=== PATIENT | male | born 1955 | race Caucasian/White ===

== ENCOUNTER → 2017-08-26 | Outpatient (CLI) | payer BC, OTHER | LOC: M LAB 08:56 | PROVIDERS: ATTEND Urology | DX: R97.20 Elevated prostate specific antigen [PSA] (principal) ==

== ENCOUNTER → 2018-08-26 | Outpatient (CLI) | payer BC, OTHER ==
[2018-08-26 10:30] LABS: PROSTATIC SPECIFIC AG MONITOR 3.47 NG/ML (< 4.0)
== END ==
LOC: M LAB 09:14
DX: R97.20 Elevated prostate specific antigen [PSA] (principal)
CPT/HCPCS: 84153

== ENCOUNTER → 2019-09-07 | Outpatient (CLI) | payer BC, OTHER | LOC: M LAB 08:16 | PROVIDERS: ATTEND Physician Assistant | DX: N40.1 Benign prostatic hyperplasia with lower urinary tract symptoms (principal) ==

== ENCOUNTER → 2020-11-27 | Outpatient (CLI) | payer BC, OTHER ==
[~2020-11-27] MED LIST: AMBI10TA PO; CRES5TAB PO; ECOT81TA5 PO
== END ==
LOC: M LAB 15:19
PROVIDERS: ATTEND Internal Medicine Gastroenterology
DX: D50.9 Iron deficiency anemia, unspecified (principal)

== ENCOUNTER → 2020-11-27 | Outpatient (CLI) | payer BC, OTHER | LOC: M LAB 15:22 | PROVIDERS: ATTEND Physician Assistant | DX: R97.20 Elevated prostate specific antigen [PSA] (principal) ==

== ENCOUNTER → 2021-01-13 | Outpatient (CLI) | payer BC, OTHER ==
[~2021-01-13] MED LIST changes: +FERR325T18 PO; +LISI20TA20 PO
== END ==
LOC: M LABSMTC 08:16
PROVIDERS: ATTEND Anesthesiology
DX: Z01.812 Encounter for preprocedural laboratory examination (principal); Z20.822 Contact with and (suspected) exposure to COVID-19

== ENCOUNTER 2021-01-18 11:24 | Day surgery (SDC) | payer BC, OTHER ==
[~2021-01-18] VITALS: Ht 167.6 cm; Wt 74.4 kg
[~2021-01-18 11:24] MED LIST changes: +NS 1,000 ML IV ONE
[2021-01-18] MEDS ORDERED: fentaNYL 100 MCG/2 ML INJECTION (J3010) As Ordered ONE (12:36)
[2021-01-18] MEDS ORDERED: LIDOCAINE 2% 100MG/5ML SDV (FOR ANES.) As Ordered ONE (12:42)
[2021-01-18] MEDS ORDERED: propofoL 200 MG/20 ML VIAL As Ordered ONE ×2 (12:42→12:43)
--- NOTE | 2021-01-18 12:55 | ROOR ---
Patient Name: Mekhi Abdalla Procedure Date: 01/18/2021 12:44 PM Date of : 1955 Age: 65 Room: [facility] Gender: Male Note Status: Finalized Procedure: Upper GI endoscopy Indications: Iron deficiency anemia Providers: Andrea CONNOR MD Referring MD: ASHLEY TAY Requesting Provider: Medicines: Monitored Anesthesia Care Complications: No immediate complications. Procedure: Pre-Anesthesia Assessment: - The heart rate, respiratory rate, oxygen saturations, blood pressure, adequacy of pulmonary ventilation, and response to care were monitored throughout the procedure. The Endoscope was introduced through the mouth, and advanced to the third part of duodenum. The upper GI endoscopy was accomplished without difficulty. The patient tolerated the procedure well. Findings: The esophagus was normal. The stomach was normal. The examined duodenum was normal. Biopsies for histology were taken with a cold forceps in the second portion of the duodenum and in the third portion of the duodenum for evaluation of celiac disease. Impression: - Normal esophagus. - Normal stomach. - Normal examined duodenum. - Biopsies were taken with a cold forceps for evaluation of celiac disease. Recommendation: - Observe patient's clinical course. Procedure Code(s): --- Professional --- 69392, Esophagogastroduodenoscopy, flexible, transoral; with biopsy, single or multiple Diagnosis Code(s): --- Professional --- D50.9, Iron deficiency anemia, unspecified CPT copyright 2019 [employer]. All rights reserved. The codes documented in this report are preliminary and upon gantry rigger review may be revised to meet current compliance requirements. Andrea Connor MD Andrea CONNOR MD 01/18/2021 12:54:57 PM Electronically signed by Andrea CONNOR MD Number of Addenda: 0 Note Initiated On: 01/18/2021 12:44 PM Estimated Blood Loss: Estimated blood loss: none.
--- NOTE | 2021-01-18 13:11 | ROOR ---
Patient Name: Mekhi Abdalla Procedure Date: 01/18/2021 12:45 PM Date of : 1955 Age: 65 Room: [facility] Gender: Male Note Status: Finalized Procedure: Colonoscopy Indications: Iron deficiency anemia Providers: Andrea CONNOR MD Referring MD: ASHLEY TAY Requesting Provider: Medicines: Monitored Anesthesia Care Complications: No immediate complications. Procedure: Pre-Anesthesia Assessment: - The heart rate, respiratory rate, oxygen saturations, blood pressure, adequacy of pulmonary ventilation, and response to care were monitored throughout the procedure. The Colonoscope was introduced through the anus and advanced to 10 cm into the ileum. The colonoscopy was performed without difficulty. The patient tolerated the procedure well. The quality of the bowel preparation was good. Findings: Skin tags were found on perianal exam. Biopsy with a cold forceps at the anus was performed for histology. The colon (entire examined portion) appeared normal. The terminal ileum appeared normal. Impression: - Perianal skin tag found on perianal exam. Biopsied. - Small internal hemiorrhoids. - The entire examined colon is normal. - The examined portion of the ileum was normal. Recommendation: - Await pathology results. - Telephone endoscopist for pathology results in 2 weeks. - Continue present medications. Procedure Code(s): --- Professional --- 24378, Colonoscopy, flexible; with biopsy, single or multiple Diagnosis Code(s): --- Professional --- D50.9, Iron deficiency anemia, unspecified K64.4, Residual hemorrhoidal skin tags CPT copyright 2019 [employer]. All rights reserved. The codes documented in this report are preliminary and upon cargo bracer review may be revised to meet current compliance requirements. Andrea Connor MD Andrea CONNOR MD 01/18/2021 1:10:39 PM Electronically signed by Andrea CONNOR MD Number of Addenda: 0 Note Initiated On: 01/18/2021 12:45 PM Estimated Blood Loss: Estimated blood loss: none.
[2021-01-18 13:35] VITALS: BP 146/70
== END 2021-01-18 13:47 | disposition home or self-care (01) ==
LOC: M OPP 11:24
PROVIDERS: ATTEND Internal Medicine Gastroenterology
DX: D50.9 Iron deficiency anemia, unspecified (principal); K64.8 Other hemorrhoids; I10 Essential (primary) hypertension; K21.9 Gastro-esophageal reflux disease without esophagitis; Z79.82 Long term (current) use of aspirin; Z79.899 Other long term (current) drug therapy
CPT/HCPCS: 43239; 45380; 88302; 88305; J3010

== ENCOUNTER → 2021-07-26 | Outpatient (CLI) | payer BC, OTHER ==
[~2021-07-26] MED LIST changes: -NS 1,000 ML IV ONE
== END ==
LOC: M LAB 08:17
PROVIDERS: ATTEND Urology
DX: C61 Malignant neoplasm of prostate (principal)

== ENCOUNTER → 2021-09-11 | Outpatient (CLI) | payer BC, OTHER | LOC: M WUC 08:36 | PROVIDERS: ATTEND Urology | DX: N40.1 Benign prostatic hyperplasia with lower urinary tract symptoms (principal) ==

== ENCOUNTER → 2021-09-23 | Outpatient (CLI) | payer BC, OTHER ==
[2021-09-23 11:26] LABS: BASO # 0.1 10^3/uL (0.0-0.2); BASO % 0.5 % (0.0-1.0); EOS # 0.1 10^3/uL (0.0-0.5); EOS % 1.4 % (0.0-3.0); HEMATOCRIT 40.6 % (42.0-52.0); HEMOGLOBIN 12.9 g/dl (13.5-17.5); LYMPH # 2.4 10^3/uL (1.5-5.0); LYMPH % 25.3 % (24.0-44.0); MEAN CORPUSCULAR HEMOGLOBIN 29.1 pg (27.0-33.0); MEAN CORPUSCULAR HGB CONC 31.8 g/dl (32.0-36.5); MEAN CORPUSCULAR VOLUME 91.4 fl (80.0-96.0); MONO # 0.6 10^3/uL (0.0-0.8); MONO % 6.3 % (2.0-8.0); NEUTROPHILS # 6.3 10^3/uL (1.5-8.5); NEUTROPHILS % 65.8 % (36.0-66.0); PLATELET COUNT, AUTOMATED 892 10^3/uL (150-450); RED BLOOD COUNT 4.44 10^6/uL (4.30-6.10); WHITE BLOOD COUNT 9.6 10^3/uL (4.0-10.0)
== END ==
LOC: M WUC 08:47
PROVIDERS: ATTEND Internal Medicine Hematology & Oncology
DX: D47.3 Essential (hemorrhagic) thrombocythemia (principal); D68.51 Activated protein C resistance

== ENCOUNTER → 2021-10-03 | Outpatient (CLI) | payer BC, OTHER ==
[2021-10-03 10:56] LABS: BASO % 0.3 % (0.0-1.0); EOS # 0.1 10^3/uL (0.0-0.5); EOS % 1.5 % (0.0-3.0); HEMATOCRIT 40.3 % (42.0-52.0); HEMOGLOBIN 12.9 g/dl (13.5-17.5); LYMPH % 25.3 % (24.0-44.0); MEAN CORPUSCULAR HEMOGLOBIN 29.5 pg (27.0-33.0); MEAN CORPUSCULAR VOLUME 92.2 fl (80.0-96.0); MONO # 0.4 10^3/uL (0.0-0.8); MONO % 4.8 % (2.0-8.0); NEUTROPHILS # 5.4 10^3/uL (1.5-8.5); NEUTROPHILS % 67.5 % (36.0-66.0); PLATELET COUNT, AUTOMATED 538 10^3/uL (150-450); RED BLOOD COUNT 4.37 10^6/uL (4.30-6.10); WHITE BLOOD COUNT 7.9 10^3/uL (4.0-10.0)
== END ==
LOC: M WUC 09:31
PROVIDERS: ATTEND Internal Medicine Hematology & Oncology
DX: D47.3 Essential (hemorrhagic) thrombocythemia (principal); D68.51 Activated protein C resistance

== ENCOUNTER → 2021-10-14 | Outpatient (CLI) | payer BC, OTHER ==
[~2021-10-14] MED LIST changes: -LISI20TA20 PO; +LISI20TA37 PO
[2021-10-14 12:57] LABS: BASO % 0.3 % (0.0-1.0); EOS % 0.5 % (0.0-3.0); HEMATOCRIT 40.5 % (42.0-52.0); LYMPH # 1.8 10^3/uL (1.5-5.0); LYMPH % 28.4 % (24.0-44.0); MEAN CORPUSCULAR HGB CONC 32.1 g/dl (32.0-36.5); MEAN CORPUSCULAR VOLUME 93.5 fl (80.0-96.0); MONO # 0.6 10^3/uL (0.0-0.8); MONO % 8.9 % (2.0-8.0); NEUTROPHILS % 61.6 % (36.0-66.0); PLATELET COUNT, AUTOMATED 490 10^3/uL (150-450); RED BLOOD COUNT 4.33 10^6/uL (4.30-6.10); WHITE BLOOD COUNT 6.4 10^3/uL (4.0-10.0)
== END ==
LOC: M WUC 10:53
PROVIDERS: ATTEND Internal Medicine Hematology & Oncology
DX: D47.3 Essential (hemorrhagic) thrombocythemia (principal); D68.51 Activated protein C resistance

== ENCOUNTER → 2021-11-04 | Outpatient (REF) | payer BC, OTHER ==
[2021-11-04 12:13] LABS: BASO % 0.3 % (0.0-1.0); EOS # 0.1 10^3/uL (0.0-0.5); HEMATOCRIT 41.3 % (42.0-52.0); HEMOGLOBIN 13.4 g/dl (13.5-17.5); LYMPH # 2.1 10^3/uL (1.5-5.0); LYMPH % 29.8 % (24.0-44.0); MEAN CORPUSCULAR HGB CONC 32.4 g/dl (32.0-36.5); MEAN CORPUSCULAR VOLUME 98.6 fl (80.0-96.0); MONO # 0.6 10^3/uL (0.0-0.8); MONO % 8.4 % (2.0-8.0); NEUTROPHILS # 4.3 10^3/uL (1.5-8.5); NEUTROPHILS % 60.2 % (36.0-66.0); PLATELET COUNT, AUTOMATED 444 10^3/uL (150-450); RED BLOOD COUNT 4.19 10^6/uL (4.30-6.10); WHITE BLOOD COUNT 7.1 10^3/uL (4.0-10.0)
== END ==
LOC: M WUC 11:15
PROVIDERS: ATTEND Internal Medicine Hematology & Oncology
DX: D47.3 Essential (hemorrhagic) thrombocythemia (principal); D68.51 Activated protein C resistance

== ENCOUNTER → 2022-01-03 | Outpatient (CLI) | payer MEDICARE, OTHER, BC ==
[2022-01-03 12:12] LABS: BASO % 0.2 % (0.0-1.0); EOS % 0.3 % (0.0-3.0); HEMATOCRIT 41.8 % (42.0-52.0); HEMOGLOBIN 13.6 g/dl (13.5-17.5); LYMPH # 1.7 10^3/uL (1.5-5.0); LYMPH % 26.9 % (24.0-44.0); MEAN CORPUSCULAR HEMOGLOBIN 35.6 pg (27.0-33.0); MEAN CORPUSCULAR HGB CONC 32.5 g/dl (32.0-36.5); MEAN CORPUSCULAR VOLUME 109.4 fl (80.0-96.0); MONO # 0.5 10^3/uL (0.0-0.8); MONO % 7.6 % (2.0-8.0); NEUTROPHILS # 4.2 10^3/uL (1.5-8.5); NEUTROPHILS % 64.5 % (36.0-66.0); PLATELET COUNT, AUTOMATED 330 10^3/uL (150-450); RED BLOOD COUNT 3.82 10^6/uL (4.30-6.10); WHITE BLOOD COUNT 6.5 10^3/uL (4.0-10.0)
[2022-01-03 12:33] LABS: ALT/SGPT 35 U/L (12-78); BILIRUBIN,TOTAL 0.5 MG/DL (0.2-1.0); BLOOD UREA NITROGEN 18 MG/DL (7-18); CARBON DIOXIDE LEVEL 29 MEQ/L (21-32); CHLORIDE LEVEL 102 MEQ/L (98-107); CREATININE FOR GFR 1.23 MG/DL (0.70-1.30); GLOMERULAR FILTRATION RATE > 60.0 (>49); GLUCOSE, FASTING 87 MG/DL (70-100); POTASSIUM SERUM 4.4 MEQ/L (3.5-5.1); SODIUM LEVEL 138 MEQ/L (136-145); TOTAL PROTEIN 7.4 GM/DL (6.4-8.2)
== END ==
LOC: M WUC 09:42
PROVIDERS: ATTEND Internal Medicine Hematology & Oncology
DX: D68.51 Activated protein C resistance (principal); D75.81 Myelofibrosis

== ENCOUNTER → 2022-01-31 | Outpatient (CLI) | payer MEDICARE, OTHER, BC ==
[2022-01-31 12:35] LABS: BASO % 0.2 % (0.0-1.0); EOS % 0.2 % (0.0-3.0); HEMATOCRIT 40.2 % (42.0-52.0); HEMOGLOBIN 13.4 g/dl (13.5-17.5); LYMPH # 1.7 10^3/uL (1.5-5.0); LYMPH % 28.7 % (24.0-44.0); MEAN CORPUSCULAR HEMOGLOBIN 37.4 pg (27.0-33.0); MEAN CORPUSCULAR HGB CONC 33.3 g/dl (32.0-36.5); MEAN CORPUSCULAR VOLUME 112.3 fl (80.0-96.0); MONO # 0.4 10^3/uL (0.0-0.8); MONO % 6.6 % (2.0-8.0); NEUTROPHILS # 3.8 10^3/uL (1.5-8.5); NEUTROPHILS % 63.8 % (36.0-66.0); PLATELET COUNT, AUTOMATED 283 10^3/uL (150-450); RED BLOOD COUNT 3.58 10^6/uL (4.30-6.10)
[2022-01-31 13:01] LABS: ALT/SGPT 26 U/L (12-78); BILIRUBIN,TOTAL 0.6 MG/DL (0.2-1.0); BLOOD UREA NITROGEN 22 MG/DL (7-18); CALCIUM LEVEL 9.1 MG/DL (8.8-10.2); CARBON DIOXIDE LEVEL 34 MEQ/L (21-32); CHLORIDE LEVEL 102 MEQ/L (98-107); CREATININE FOR GFR 1.23 MG/DL (0.70-1.30); GLOMERULAR FILTRATION RATE > 60.0 (>49); GLUCOSE, FASTING 108 MG/DL (70-100); POTASSIUM SERUM 4.4 MEQ/L (3.5-5.1); SODIUM LEVEL 139 MEQ/L (136-145); TOTAL PROTEIN 7.4 GM/DL (6.4-8.2)
== END ==
LOC: M WUC 09:50
PROVIDERS: ATTEND Internal Medicine Hematology & Oncology
DX: D68.51 Activated protein C resistance (principal); D75.81 Myelofibrosis

== ENCOUNTER → 2022-03-24 | Outpatient (CLI) | payer MEDICARE, OTHER, BC | LOC: M WUC 10:01 | PROVIDERS: ATTEND Urology | DX: C61 Malignant neoplasm of prostate (principal) ==

== ENCOUNTER → 2022-03-24 | Outpatient (CLI) | payer MEDICARE, OTHER, BC ==
[2022-03-24 13:40] LABS: BASO % 0.2 % (0.0-1.0); EOS % 0.2 % (0.0-3.0); HEMATOCRIT 41.1 % (42.0-52.0); HEMOGLOBIN 13.5 g/dl (13.5-17.5); LYMPH # 1.5 10^3/uL (1.5-5.0); LYMPH % 28.5 % (24.0-44.0); MEAN CORPUSCULAR HGB CONC 32.8 g/dl (32.0-36.5); MONO # 0.5 10^3/uL (0.0-0.8); MONO % 9.1 % (2.0-8.0); NEUTROPHILS # 3.3 10^3/uL (1.5-8.5); NEUTROPHILS % 61.6 % (36.0-66.0); PLATELET COUNT, AUTOMATED 300 10^3/uL (150-450); RED BLOOD COUNT 3.55 10^6/uL (4.30-6.10); WHITE BLOOD COUNT 5.3 10^3/uL (4.0-10.0)
[2022-03-24 13:45] LABS: MEAN CORPUSCULAR VOLUME 115.8 fl (80.0-96.0)
[2022-03-24 14:04] LABS: ALBUMIN 3.9 GM/DL (3.2-5.2); ALT/SGPT 26 U/L (12-78); BILIRUBIN,TOTAL 0.5 MG/DL (0.2-1.0); BLOOD UREA NITROGEN 23 MG/DL (7-18); CALCIUM LEVEL 9.3 MG/DL (8.8-10.2); CARBON DIOXIDE LEVEL 31 MEQ/L (21-32); CHLORIDE LEVEL 104 MEQ/L (98-107); CREATININE FOR GFR 1.14 MG/DL (0.70-1.30); GLOMERULAR FILTRATION RATE > 60.0 (>49); GLUCOSE, FASTING 111 MG/DL (70-100); POTASSIUM SERUM 5.1 MEQ/L (3.5-5.1); SODIUM LEVEL 139 MEQ/L (136-145); TOTAL PROTEIN 7.4 GM/DL (6.4-8.2)
[2022-03-24 14:22] LABS: PLATELET ESTIMATE NORMAL (NORMAL)
== END ==
LOC: M WUC 10:04
PROVIDERS: ATTEND Internal Medicine Hematology & Oncology
DX: D68.51 Activated protein C resistance (principal); D75.81 Myelofibrosis

== ENCOUNTER → 2022-04-21 | Outpatient (CLI) | payer MEDICARE, OTHER, BC ==
[2022-04-21 12:54] LABS: BASO % 0.2 % (0.0-1.0); EOS % 0.2 % (0.0-3.0); HEMATOCRIT 40.4 % (42.0-52.0); HEMOGLOBIN 13.6 g/dl (13.5-17.5); LYMPH # 1.6 10^3/uL (1.5-5.0); LYMPH % 28.9 % (24.0-44.0); MEAN CORPUSCULAR HEMOGLOBIN 40.1 pg (27.0-33.0); MEAN CORPUSCULAR HGB CONC 33.7 g/dl (32.0-36.5); MONO # 0.4 10^3/uL (0.0-0.8); MONO % 7.5 % (2.0-8.0); NEUTROPHILS # 3.4 10^3/uL (1.5-8.5); NEUTROPHILS % 62.8 % (36.0-66.0); PLATELET COUNT, AUTOMATED 286 10^3/uL (150-450); RED BLOOD COUNT 3.39 10^6/uL (4.30-6.10); WHITE BLOOD COUNT 5.4 10^3/uL (4.0-10.0)
[2022-04-21 12:56] LABS: MEAN CORPUSCULAR VOLUME 119.2 fl (80.0-96.0)
[2022-04-21 13:22] LABS: ALBUMIN 3.9 GM/DL (3.2-5.2); BILIRUBIN,TOTAL 0.5 MG/DL (0.2-1.0); CALCIUM LEVEL 8.9 MG/DL (8.8-10.2); CREATININE FOR GFR 1.4 MG/DL (0.70-1.30); GLOMERULAR FILTRATION RATE 54.1 (>49); POTASSIUM SERUM 4.8 MEQ/L (3.5-5.1); TOTAL PROTEIN 6.9 GM/DL (6.4-8.2)
[2022-04-21 13:29] LABS: OVALOCYTES 3+; TEAR DROP CELLS 1+
[2022-04-21 13:30] LABS: PLATELET ESTIMATE NORMAL (NORMAL)
== END ==
LOC: M WUC 09:26
PROVIDERS: ATTEND Internal Medicine Hematology & Oncology
DX: D68.51 Activated protein C resistance (principal); D75.81 Myelofibrosis

== ENCOUNTER → 2022-09-30 | Outpatient (CLI) | payer MEDICARE, OTHER, BC | LOC: M WUC 09:05 | PROVIDERS: ATTEND Urology | DX: C61 Malignant neoplasm of prostate (principal) ==

== ENCOUNTER → 2022-11-07 | Outpatient (CLI) | payer MEDICARE, OTHER, BC ==
[2022-11-07 13:54] LABS: BASO % 0.3 % (0.0-1.0); EOS % 0.7 % (0.0-3.0); HEMATOCRIT 41.3 % (42.0-52.0); HEMOGLOBIN 13.8 g/dl (13.5-17.5); LYMPH # 1.5 10^3/uL (1.5-5.0); LYMPH % 25.7 % (24.0-44.0); MEAN CORPUSCULAR HEMOGLOBIN 40.1 pg (27.0-33.0); MEAN CORPUSCULAR HGB CONC 33.4 g/dl (32.0-36.5); MONO # 0.6 10^3/uL (0.0-0.8); MONO % 10.4 % (2.0-8.0); NEUTROPHILS # 3.7 10^3/uL (1.5-8.5); NEUTROPHILS % 62.4 % (36.0-66.0); PLATELET COUNT, AUTOMATED 375 10^3/uL (150-450); RED BLOOD COUNT 3.44 10^6/uL (4.30-6.10)
[2022-11-07 14:08] LABS: ALKALINE PHOSPHATASE 62 U/L (46-116); ALT/SGPT 33 U/L (7.0-40); AST/SGOT 29 U/L (<34); BILIRUBIN,TOTAL 0.6 MG/DL (0.3-1.2); BLOOD UREA NITROGEN 20 MG/DL (9-23); CALCIUM LEVEL 8.9 MG/DL (8.3-10.6); CARBON DIOXIDE LEVEL 27 MMOL/L (20-31); CHLORIDE LEVEL 100 MMOL/L (98-107); CHOLESTEROL LEVEL 140 MG/DL (<200); CHOLESTEROL RISK RATIO 3.32 (<5); CREATININE FOR GFR 1.06 MG/DL (0.70-1.30); GLOMERULAR FILTRATION RATE > 60.0 (>49); GLUCOSE, FASTING 95 MG/DL (74-106); HDL CHOLESTEROL 42.1 MG/DL (>40); LDL CHOLESTEROL 71.9 MG/DL (<100); NON-HDL-C 98 MG/DL; POTASSIUM SERUM 5.3 MMOL/L (3.5-5.1); SODIUM LEVEL 137 MMOL/L (136-145); TRIGLYCERIDES LEVEL 130 MG/DL (<150)
[2022-11-07 14:09] LABS: MEAN CORPUSCULAR VOLUME 120.1 fl (80.0-96.0)
[2022-11-07 15:26] LABS: PLATELET ESTIMATE NORMAL (NORMAL)
== END ==
LOC: M PLALAB 09:31
PROVIDERS: ATTEND Physician Assistant
DX: I10 Essential (primary) hypertension (principal); E78.5 Hyperlipidemia, unspecified

== ENCOUNTER → 2023-02-09 | Outpatient (CLI) | payer MEDICARE, OTHER, BC ==
[2023-02-09 12:31] LABS: BASO % 0.2 % (0.0-1.0); EOS % 0.3 % (0.0-3.0); HEMATOCRIT 41.2 % (42.0-52.0); HEMOGLOBIN 13.7 g/dl (13.5-17.5); LYMPH # 1.9 10^3/uL (1.5-5.0); LYMPH % 32.4 % (24.0-44.0); MEAN CORPUSCULAR HEMOGLOBIN 39.7 pg (27.0-33.0); MEAN CORPUSCULAR HGB CONC 33.3 g/dl (32.0-36.5); MONO # 0.5 10^3/uL (0.0-0.8); MONO % 9.2 % (2.0-8.0); NEUTROPHILS # 3.3 10^3/uL (1.5-8.5); NEUTROPHILS % 57.6 % (36.0-66.0); PLATELET COUNT, AUTOMATED 362 10^3/uL (150-450); RED BLOOD COUNT 3.45 10^6/uL (4.30-6.10); WHITE BLOOD COUNT 5.8 10^3/uL (4.0-10.0)
[2023-02-09 12:36] LABS: MEAN CORPUSCULAR VOLUME 119.4 fl (80.0-96.0)
[2023-02-09 12:58] LABS: ALBUMIN 3.8 G/DL (3.2-5.2); ALKALINE PHOSPHATASE 60 U/L (46-116); ALT/SGPT 20 U/L (7.0-40); AST/SGOT 22 U/L (<34); BILIRUBIN,TOTAL 0.6 MG/DL (0.3-1.2); BLOOD UREA NITROGEN 22 MG/DL (9-23); CALCIUM LEVEL 8.8 MG/DL (8.3-10.6); CARBON DIOXIDE LEVEL 31 MMOL/L (20-31); CHLORIDE LEVEL 100 MMOL/L (98-107); CHOLESTEROL LEVEL 129 MG/DL (<200); CHOLESTEROL RISK RATIO 2.89 (<5); CREATININE FOR GFR 1.06 MG/DL (0.70-1.30); GLOMERULAR FILTRATION RATE > 60.0 (>49); GLUCOSE, FASTING 85 MG/DL (74-106); HDL CHOLESTEROL 44.6 MG/DL (>40); LDL CHOLESTEROL 63.8 MG/DL (<100); NON-HDL-C 84.4 MG/DL; POTASSIUM SERUM 4.2 MMOL/L (3.5-5.1); SODIUM LEVEL 138 MMOL/L (136-145); TOTAL PROTEIN 6.7 G/DL (5.7-8.2); TRIGLYCERIDES LEVEL 103 MG/DL (<150)
== END ==
LOC: M WUC 08:21
PROVIDERS: ATTEND Physician Assistant
DX: I10 Essential (primary) hypertension (principal); E78.5 Hyperlipidemia, unspecified; D75.81 Myelofibrosis

== ENCOUNTER → 2023-03-31 | Outpatient (CLI) | payer MEDICARE, OTHER, BC ==
[2023-04-01 23:07] LABS: PSA % FREE 27.1 % (.); PSA FREE 1.49 ng/mL; PSA TOTAL 5.5 ng/mL (0.0-4.0)
== END ==
LOC: M WUC 09:22
PROVIDERS: ATTEND Urology
DX: C61 Malignant neoplasm of prostate (principal); R97.20 Elevated prostate specific antigen [PSA]

== ENCOUNTER → 2023-05-13 | Outpatient (CLI) | payer MEDICARE, OTHER, BC ==
[2023-05-13 11:45] LABS: ALBUMIN 3.9 G/DL (3.2-5.2); ALKALINE PHOSPHATASE 50 U/L (46-116); ALT/SGPT 23 U/L (7.0-40); AST/SGOT 23 U/L (<34); BILIRUBIN,TOTAL 0.8 MG/DL (0.3-1.2); BLOOD UREA NITROGEN 19 MG/DL (9-23); CALCIUM LEVEL 8.3 MG/DL (8.3-10.6); CARBON DIOXIDE LEVEL 31 MMOL/L (20-31); CHLORIDE LEVEL 102 MMOL/L (98-107); CHOLESTEROL LEVEL 131 MG/DL (<200); CHOLESTEROL RISK RATIO 3.36 (<5); CREATININE FOR GFR 1.09 MG/DL (0.70-1.30); GLOMERULAR FILTRATION RATE > 60.0 (>49); GLUCOSE, FASTING 89 MG/DL (74-106); HDL CHOLESTEROL 38.9 MG/DL (>40); LDL CHOLESTEROL 65.7 MG/DL (<100); NON-HDL-C 92.1 MG/DL; POTASSIUM SERUM 4.8 MMOL/L (3.5-5.1); SODIUM LEVEL 137 MMOL/L (136-145); TOTAL PROTEIN 6.4 G/DL (5.7-8.2); TRIGLYCERIDES LEVEL 132 MG/DL (<150)
== END ==
LOC: M WUC 08:19
PROVIDERS: ATTEND Physician Assistant
DX: I10 Essential (primary) hypertension (principal); E78.5 Hyperlipidemia, unspecified

== ENCOUNTER → 2023-08-27 | Outpatient (REF) | payer MEDICARE, OTHER, BC ==
[2023-08-27 12:09] LABS: EOS % 0.3 % (0.0-3.0); HEMATOCRIT 40.1 % (42.0-52.0); HEMOGLOBIN 13.3 g/dl (13.5-17.5); LYMPH # 1.5 10^3/uL (1.5-5.0); LYMPH % 23.6 % (24.0-44.0); MEAN CORPUSCULAR HEMOGLOBIN 40.4 pg (27.0-33.0); MEAN CORPUSCULAR HGB CONC 33.2 g/dl (32.0-36.5); MONO # 0.5 10^3/uL (0.0-0.8); MONO % 7.6 % (2.0-8.0); NEUTROPHILS # 4.4 10^3/uL (1.5-8.5); PLATELET COUNT, AUTOMATED 298 10^3/uL (150-450); RED BLOOD COUNT 3.29 10^6/uL (4.30-6.10); WHITE BLOOD COUNT 6.5 10^3/uL (4.0-10.0)
[2023-08-27 12:12] LABS: MEAN CORPUSCULAR VOLUME 121.9 fl (80.0-96.0)
[2023-08-27 12:34] LABS: ALKALINE PHOSPHATASE 59 U/L (46-116); ALT/SGPT 20 U/L (7.0-40); AST/SGOT 23 U/L (<34); BILIRUBIN,TOTAL 0.7 MG/DL (0.3-1.2); BLOOD UREA NITROGEN 20 MG/DL (9-23); CALCIUM LEVEL 9.1 MG/DL (8.3-10.6); CARBON DIOXIDE LEVEL 33 MMOL/L (20-31); CHLORIDE LEVEL 102 MMOL/L (98-107); CREATININE FOR GFR 1.09 MG/DL (0.70-1.30); GLOMERULAR FILTRATION RATE > 60.0 (>49); GLUCOSE, FASTING 153 MG/DL (74-106); POTASSIUM SERUM 4.9 MMOL/L (3.5-5.1); SODIUM LEVEL 140 MMOL/L (136-145); TOTAL PROTEIN 7.1 G/DL (5.7-8.2)
[2023-08-27 12:49] LABS: ANISOCYTOSIS 1+; PLATELET ESTIMATE NORMAL (NORMAL)
== END ==
LOC: M WUC 11:14
PROVIDERS: ATTEND Nurse Practitioner
DX: D68.51 Activated protein C resistance (principal); D75.81 Myelofibrosis

== ENCOUNTER → 2023-11-19 | Outpatient (CLI) | payer MEDICARE, OTHER, BC ==
[2023-11-19 10:18] LABS: HEMATOCRIT 40.2 % (42.0-52.0); HEMOGLOBIN 13.4 g/dl (13.5-17.5); MEAN CORPUSCULAR HEMOGLOBIN 39.9 pg (27.0-33.0); MEAN CORPUSCULAR HGB CONC 33.3 g/dl (32.0-36.5); PLATELET COUNT, AUTOMATED 426 10^3/uL (150-450); RED BLOOD COUNT 3.36 10^6/uL (4.30-6.10); WHITE BLOOD COUNT 6.3 10^3/uL (4.0-10.0)
[2023-11-19 10:43] LABS: ALBUMIN 3.9 G/DL (3.2-5.2); ALKALINE PHOSPHATASE 58 U/L (46-116); ALT/SGPT 20 U/L (7.0-40); AST/SGOT 21 U/L (<34); BILIRUBIN,TOTAL 0.6 MG/DL (0.3-1.2); BLOOD UREA NITROGEN 18 MG/DL (9-23); CALCIUM LEVEL 8.9 MG/DL (8.3-10.6); CARBON DIOXIDE LEVEL 32 MMOL/L (20-31); CHLORIDE LEVEL 102 MMOL/L (98-107); CHOLESTEROL LEVEL 137 MG/DL (<200); CHOLESTEROL RISK RATIO 3.41 (<5); CREATININE FOR GFR 1.09 MG/DL (0.70-1.30); GLOMERULAR FILTRATION RATE > 60.0 (>49); GLUCOSE, FASTING 96 MG/DL (74-106); HDL CHOLESTEROL 40.1 MG/DL (>40); LDL CHOLESTEROL 66.1 MG/DL (<100); NON-HDL-C 96.9 MG/DL; POTASSIUM SERUM 4.7 MMOL/L (3.5-5.1); SODIUM LEVEL 137 MMOL/L (136-145); TOTAL PROTEIN 6.7 G/DL (5.7-8.2); TRIGLYCERIDES LEVEL 154 MG/DL (<150)
[2023-11-19 12:13] LABS: MEAN CORPUSCULAR VOLUME 119.6 fl (80.0-96.0)
== END ==
LOC: M WUC 08:21
PROVIDERS: ATTEND Physician Assistant
DX: I10 Essential (primary) hypertension (principal); E78.5 Hyperlipidemia, unspecified; D68.4 Acquired coagulation factor deficiency; D75.81 Myelofibrosis

== ENCOUNTER → 2023-12-16 | Outpatient (REF) | payer MEDICARE, OTHER, BC | LOC: M LABWUC 13:29 | PROVIDERS: ATTEND Urology | DX: C61 Malignant neoplasm of prostate (principal) ==

== ENCOUNTER → 2024-06-01 | Outpatient (CLI) | payer MEDICARE, OTHER, BC ==
[2024-06-01 11:54] LABS: HEMATOCRIT 38.8 % (42.0-52.0); HEMOGLOBIN 13.1 g/dl (13.5-17.5); MEAN CORPUSCULAR HEMOGLOBIN 40.6 pg (27.0-33.0); MEAN CORPUSCULAR HGB CONC 33.8 g/dl (32.0-36.5); PLATELET COUNT, AUTOMATED 310 10^3/uL (150-450); RED BLOOD COUNT 3.23 10^6/uL (4.30-6.10)
[2024-06-01 12:00] LABS: MEAN CORPUSCULAR VOLUME 120.1 fl (80.0-96.0)
[2024-06-01 12:31] LABS: ALBUMIN 3.8 G/DL (3.2-5.2); ALKALINE PHOSPHATASE 55 U/L (46-116); ALT/SGPT 21 U/L (7.0-40); AST/SGOT 18 U/L (<34); BILIRUBIN,TOTAL 0.8 MG/DL (0.3-1.2); BLOOD UREA NITROGEN 18 MG/DL (9-23); CALCIUM LEVEL 8.7 MG/DL (8.3-10.6); CARBON DIOXIDE LEVEL 29 MMOL/L (20-31); CHLORIDE LEVEL 104 MMOL/L (98-107); CHOLESTEROL LEVEL 132 MG/DL (<200); CHOLESTEROL RISK RATIO 3.88 (<5); CREATININE FOR GFR 1.08 MG/DL (0.70-1.30); GLOMERULAR FILTRATION RATE > 60.0 (>49); GLUCOSE, FASTING 99 MG/DL (74-106); LDL CHOLESTEROL 66.2 MG/DL (<100); POTASSIUM SERUM 4.2 MMOL/L (3.5-5.1); SODIUM LEVEL 138 MMOL/L (136-145); TOTAL PROTEIN 6.5 G/DL (5.7-8.2); TRIGLYCERIDES LEVEL 159 MG/DL (<150)
[2024-06-01 12:34] LABS: THYROID STIMULATING HORMONE 2.464 uIU/ML (0.55-4.78)
[2024-06-08 07:46] LABS: WHITE BLOOD COUNT 6.2 10^3/uL (4.0-10.0)
== END ==
LOC: M WUC 08:30
PROVIDERS: ATTEND Physician Assistant
DX: E78.5 Hyperlipidemia, unspecified (principal); I10 Essential (primary) hypertension

== ENCOUNTER → 2024-06-24 | Outpatient (CLI) | payer MEDICARE, OTHER, BC ==
[2024-06-27 13:42] LABS: PSA FREE 1.3 ng/mL
== END ==
LOC: M WUC 08:54
PROVIDERS: ATTEND Physician Assistant
DX: C61 Malignant neoplasm of prostate (principal)

== ENCOUNTER → 2024-12-05 | Outpatient (CLI) | payer MEDICARE, BC, OTHER ==
[2024-12-05 11:52] LABS: HEMATOCRIT 39.3 % (42.0-52.0); HEMOGLOBIN 13.3 g/dl (13.5-17.5); MEAN CORPUSCULAR HEMOGLOBIN 40.3 pg (27.0-33.0); MEAN CORPUSCULAR HGB CONC 33.8 g/dl (32.0-36.5); PLATELET COUNT, AUTOMATED 327 10^3/uL (150-450)
[2024-12-05 11:57] LABS: MEAN CORPUSCULAR VOLUME 119.1 fl (80.0-96.0)
[2024-12-05 12:13] LABS: ALBUMIN 3.7 G/DL (3.2-5.2); ALKALINE PHOSPHATASE 64 U/L (40-129); ALT/SGPT 23 U/L (7.0-40); AST/SGOT 20 U/L (<34); BILIRUBIN,TOTAL 0.7 MG/DL (0.3-1.2); BLOOD UREA NITROGEN 18 MG/DL (9-23); CALCIUM LEVEL 8.7 MG/DL (8.3-10.6); CARBON DIOXIDE LEVEL 32 MMOL/L (20-31); CHLORIDE LEVEL 102 MMOL/L (98-107); CHOLESTEROL LEVEL 155 MG/DL (<200); CREATININE FOR GFR 1.18 MG/DL (0.70-1.30); GLOMERULAR FILTRATION RATE > 60.0 (>49); GLUCOSE, FASTING 89 MG/DL (74-106); HDL CHOLESTEROL 39.7 MG/DL (>40); LDL CHOLESTEROL 82.5 MG/DL (<100); NON-HDL-C 115.3 MG/DL; POTASSIUM SERUM 4.5 MMOL/L (3.5-5.1); SODIUM LEVEL 139 MMOL/L (136-145); TOTAL PROTEIN 7.2 G/DL (5.7-8.2); TRIGLYCERIDES LEVEL 164 MG/DL (<150)
[2024-12-05 12:15] LABS: THYROID STIMULATING HORMONE 2.435 uIU/ML (0.55-4.78)
== END ==
LOC: M WUC 08:24
PROVIDERS: ATTEND Physician Assistant
DX: I10 Essential (primary) hypertension (principal); E78.5 Hyperlipidemia, unspecified; D75.81 Myelofibrosis

== ENCOUNTER → 2024-12-21 | Outpatient (CLI) | payer MEDICARE, BC | LOC: M WUC 10:49 | PROVIDERS: ATTEND Physician Assistant | DX: C61 Malignant neoplasm of prostate (principal) ==

== ENCOUNTER → 2025-06-08 | Outpatient (CLI) | payer MEDICARE, BC ==
[~2025-06-08] MED LIST changes: -AMBI10TA PO; +ZOLP-533 PO
[2025-06-08 12:30] LABS: PLATELET COUNT, AUTOMATED 386 10^3/uL (150-450)
[2025-06-08 12:46] LABS: ALT/SGPT 43.0 U/L (7.0-40); AST/SGOT 37.0 U/L (<34); CALCIUM LEVEL 8.7 MG/DL (8.3-10.6); CARBON DIOXIDE LEVEL 29.0 MMOL/L (20-31); CHLORIDE LEVEL 100.0 MMOL/L (98-107); CHOLESTEROL LEVEL 136.0 MG/DL (<200); CHOLESTEROL RISK RATIO 3.32 (<5); CREATININE FOR GFR 1.19 MG/DL (0.70-1.30); GLOMERULAR FILTRATION RATE 66.5 (>49); LDL CHOLESTEROL 67.5 MG/DL (<100); NON-HDL-C 95.1 MG/DL; POTASSIUM SERUM 4.1 MMOL/L (3.5-5.1); SODIUM LEVEL 140.0 MMOL/L (136-145); TRIGLYCERIDES LEVEL 138.0 MG/DL (<150)
== END ==
LOC: M WUC 08:08
PROVIDERS: ATTEND Physician Assistant
DX: I10 Essential (primary) hypertension (principal); E78.5 Hyperlipidemia, unspecified; D75.81 Myelofibrosis

== ENCOUNTER → 2025-06-20 | Outpatient (REF) | payer MEDICARE, BC | LOC: M LABWUC 17:30 → M LAB REF 17:30 | PROVIDERS: ATTEND Physician Assistant | DX: C61 Malignant neoplasm of prostate (principal) ==